=== PATIENT | male | born 1955 | race Asian ===

== ENCOUNTER 2017-07-21 09:46 | Outpatient (RCR) | payer BC ==
[~2017-07-21 09:46] MED LIST: CHOL500050 PO; CPR500T PO; MULT-418 PO; MULT-974 PO; OMG1KC PO; SMV10T PO
[2017-07-21 10:43] LABS: BASOPHILS % (AUTO) 1 % (0-10); EOSINOPHILS # (AUTO) 0.1 10^3/uL (0.0-0.3); EOSINOPHILS % (AUTO) 2 % (0-10); LYMPHOCYTES # (AUTO) 1.4 X 10^3 (1.0-4.0); LYMPHOCYTES % (AUTO) 28 % (12-44); MEAN CORPUSCULAR HEMOGLOBIN 29 PG (25-34); MEAN CORPUSCULAR HGB CONC 34 G/DL (32-36); MEAN CORPUSCULAR VOLUME 85 FL (80-99); MEAN PLATELET VOLUME 10.5 FL (7.4-10.4); MONOCYTES # (AUTO) 0.4 X 10^3 (0.0-1.0); MONOCYTES % (AUTO) 8 % (0-12); NEUTROPHILS % (AUTO) 61 % (42-75); PLATELET COUNT 160 10^3/uL (130-400); RED BLOOD COUNT 5.78 10^6/uL (4.35-5.85); RED CELL DISTRIBUTION WIDTH 13.4 % (10.0-14.5); RETICULOCYTE % 0.82 % (0.50-2.40)
[2017-07-21 11:19] LABS: ANION GAP 10 MMOL/L (5-14); BLOOD UREA NITROGEN 12 MG/DL (7-18); BUN/CREATININE RATIO 10; CARBON DIOXIDE 26 MMOL/L (21-32); CHLORIDE 104 MMOL/L (98-107); SODIUM 140 MMOL/L (135-145)
[2017-07-21 11:20] LABS: ALANINE AMINOTRANSFERASE 31 U/L (0-55); ALBUMIN 4.5 GM/DL (3.2-4.5); ASPARTATE AMINO TRANSFERASE 31 U/L (5-34); BILIRUBIN,TOTAL 0.7 MG/DL (0.1-1.0); CALCIUM 9.4 MG/DL (8.5-10.1); GFR ESTIMATED > 60; GLUCOSE 93 MG/DL (70-105); TOTAL PROTEIN 7.4 GM/DL (6.4-8.2)
[2017-07-26 07:22] LABS: JAK2 MUTATION Not Detected
== END 2017-08-21 | disposition home or self-care (01) ==
LOC: ONC 09:46
PROVIDERS: ATTEND Internal Medicine Hematology & Oncology
DX: R79.89 Other specified abnormal findings of blood chemistry (principal); E78.00 Pure hypercholesterolemia, unspecified; E03.9 Hypothyroidism, unspecified; Z79.899 Other long term (current) drug therapy
CPT/HCPCS: 36415; 80053; 81270; 82375; 82668; 82728; 83540; 85025; 85045; 99214

== ENCOUNTER 2017-08-26 14:50 | Outpatient (RCR) | payer BC ==
[2017-08-26 15:16] LABS: BASOPHILS % (AUTO) 0 % (0-10); EOSINOPHILS # (AUTO) 0.2 10^3/uL (0.0-0.3); EOSINOPHILS % (AUTO) 3 % (0-10); HEMATOCRIT 48 % (40-54); HEMOGLOBIN 16.5 G/DL (13.3-17.7); LYMPHOCYTES # (AUTO) 1.4 X 10^3 (1.0-4.0); LYMPHOCYTES % (AUTO) 26 % (12-44); MEAN CORPUSCULAR HEMOGLOBIN 29 PG (25-34); MEAN CORPUSCULAR HGB CONC 34 G/DL (32-36); MEAN CORPUSCULAR VOLUME 85 FL (80-99); MEAN PLATELET VOLUME 10.3 FL (7.4-10.4); MONOCYTES # (AUTO) 0.4 X 10^3 (0.0-1.0); MONOCYTES % (AUTO) 7 % (0-12); NEUTROPHILS # (AUTO) 3.4 X 10^3 (1.8-7.8); NEUTROPHILS % (AUTO) 64 % (42-75); PLATELET COUNT 148 10^3/uL (130-400); RED BLOOD COUNT 5.65 10^6/uL (4.35-5.85); RED CELL DISTRIBUTION WIDTH 13.3 % (10.0-14.5); WHITE BLOOD COUNT 5.3 10^3/uL (4.3-11.0)
== END 2017-11-24 | disposition home or self-care (01) ==
LOC: ONC 14:50
PROVIDERS: ATTEND Internal Medicine Hematology & Oncology
DX: D58.2 Other hemoglobinopathies (principal); E78.00 Pure hypercholesterolemia, unspecified; E03.9 Hypothyroidism, unspecified; Z79.899 Other long term (current) drug therapy
CPT/HCPCS: 36415; 82728; 83540; 85025; 99213

== ENCOUNTER 2018-09-29 05:52 | Outpatient (CLI) | payer BC ==
[~2018-09-29] VITALS: Ht 162.6 cm; Wt 64.4 kg
[2018-09-29] MEDS ORDERED: LEVO25TA5 PO (14:37)
[2018-09-29] MEDS ORDERED: OMG1KC PO (14:37)
[2018-09-29] MEDS ORDERED: SIMV40TA4 PO (14:37)
== END 2018-09-29 14:41 | disposition home or self-care (01) ==
LOC: PREOP 05:52
PROVIDERS: ATTEND Internal Medicine
DX: Z01.818 Encounter for other preprocedural examination (principal)

== ENCOUNTER 2018-10-07 07:48 | Day surgery (SDC) | payer BC ==
--- NOTE | 2018-09-28 17:26 | HISTORY AND PHYSICAL ---
DATE OF SERVICE: COLONOSCOPY CONSULT HISTORY OF PRESENT ILLNESS: The patient is a 63-year-old white male, referred back to Dr. Santos, for consideration for endoscopy due to hemoccult positive blood in the stool. The patient states that he has generally been feeling well. He has noted no bowel habit change. Occasionally, he has had some stools that have been darker in color, although not overtly melanotic. He denies abdominal pain, reflux symptoms or dysphagia. He does take a baby aspirin daily for primary prevention. He underwent colonoscopy 2-1/2 years ago at which time, no abnormalities were noted and there was no evidence for neoplasia, hemorrhoids or any potential bleeding sites at that time. That was done for screening purposes. He has had no past history of EGD evaluation. He does report that over the past 6 months, he has lost about 6 pounds. He has been normal weight, now in his life. Compared to a weight in 06/2016, at the time of his colonoscopy consultation, he weighed 149.4 pounds and today, he is down by 4 pounds to 145.4. FAMILY HISTORY: He is not aware of any family history of GI tract malignancy. Father at the age of 65, secondary to stroke. Mother also had history of stroke at the age of 67 and had hyperlipidemia. She at the age of 67. PAST SURGICAL HISTORY: Pertinent only for a vasectomy. 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 REVIEW OF SYSTEMS: As was stated in the HPI. PHYSICAL EXAMINATION: GENERAL: Reveals a well-appearing male, in no acute distress. VITAL SIGNS: Blood pressure is 136/84, heart rate 72 and regular. HEENT: Unremarkable. Sclerae are nonicteric. There is no evidence for pallor. Oral cavity reveals Mallampati class 2 pharyngeal configuration without evidence for erythema or exudate. CHEST: Clear to auscultation. CARDIOVASCULAR: Reveals a regular rate and rhythm without murmur, S3 or S4. ABDOMEN: Soft, supple without mass, organomegaly or tenderness. EXTREMITIES: Reveal no cyanosis, clubbing or edema. LABORATORY DATA: Blood tests from 09/20/2018, were reviewed. He had normal TSH, vitamin D level, chemistry panel, testosterone level and CBC. Hemoglobin was 16.8, MCV was 87. PSA was within normal limits at 2.78. ASSESSMENT AND PLAN: For further evaluation of occult positive blood in the stool, the patient is set up for diagnostic colonoscopy on 10/07/2018. If no abnormalities are noted considering the fact the patient is on aspirin for primary prevention of cardiovascular disease, we will proceed with EGD evaluation. Thank you for the referral of this pleasant gentleman. Job ID: [id number] DocumentID: [id number] Dictated Date: 09/28/2018 16:31:49 Petroleum Inspector Supervisor Date: 09/28/2018 17:26:15 Dictated By: ASHOK SANTOS MD
[~2018-10-07] VITALS: Ht 162.6 cm; Wt 64.4 kg
[~2018-10-07 07:48] MED LIST changes: +LEVO25TA5 PO; +SIMV40TA4 PO
[2018-10-07] MEDS ORDERED: D5 LR IV SOLUTION 1,000 ML IV ONE (08:01)
[2018-10-07] MEDS ORDERED: D5 LR IV SOLUTION 1,000 ML IV STA (08:17)
[2018-10-07 08:20] VITALS: BP 146/88
[2018-10-07] MEDS ORDERED: LIDOCAINE JELLY 2% 6 ML SYRINGE MM PRN (08:30)
[2018-10-07] MEDS ORDERED: fentaNYL INJECTION 100 MCG/2 ML AMP IVP ONE (08:30)
[2018-10-07] MEDS ORDERED: MIDAZOLAM 2 MG/2 ML (VERSED) VIAL IVP ONE (08:30)
[2018-10-07] MEDS ORDERED: HURRICAINE EXT TUBE (BENZOCAINE) XX PRN (08:30)
[2018-10-07] MEDS ORDERED: LIDOCAINE JELLY 2% 6 ML SYRINGE ONE (08:51)
[2018-10-07] MEDS ORDERED: MIDAZOLAM 2 MG/2 ML (VERSED) VIAL ONE ×4 (08:51)
[2018-10-07] MEDS ORDERED: HURRICAINE EXT TUBE (BENZOCAINE) ONE (08:51)
[2018-10-07] MEDS ORDERED: fentaNYL INJECTION 100 MCG/2 ML AMP ONE ×2 (08:51)
--- NOTE | 2018-10-07 09:00 | Pre-Op Note & Conscious Sedat ---
Pre-Operative Progress Note H&P Reviewed The H&P was reviewed, patient examined and no changes noted. Date H&P Reviewed: Oct 07, 2018 Time H&P Reviewed: 08:30 Conscious Sedation Pre-Proced ASA Score 1 For ASA 3 and 4: Consider anesthesia and medical clearance. Also, for patients with a history of failed moderate sedation consider anesthesia. Airway Lungs Heart ASA score ASA 1: a normal healthy patient ASA 2: a patient with a mild systemic disease (mid diabetes, controlled hypertension, obesity ASA 3: a patient with a severe systemic disease that limits activity (angina , COPD, prior Myocardial infarction) ASA 4: a patient with an incapacitating disease that is a constant threat to life (CHF, renal failure) ASA 5: a moribund patient not expected to survive 24 hrs. (ruptured aneurysm) ASA 6: a declared brain patient whose organs are being harvested. For emergent operations, add the letter E after the classification Mallampati Classification Grade 2 Sedation Plan Analgesia, Amnesia, Plan communicated to team members, Discussed options with patient/fam, Discussed risks with patient/fam The patient is an appropriate candidate to undergo the planned procedure, sedation, and anesthesia. The patient immediately re-assessed prior to indication. ASHOK SANTOS MD Oct 07, 2018 09:00
[2018-10-07] MEDS ORDERED: SIMETHICONE 40 MG/0.6 ML (MYLICON DROPS) 30 ML BTL ONE (09:14)
[2018-10-07] MEDS ORDERED: SIMETHICONE 40 MG/0.6 ML (MYLICON DROPS) 30 ML BTL PO PRN (09:30)
[2018-10-07 09:50] VITALS: BP 132/75
[2018-10-07 10:25] VITALS: BP 134/88
[2018-10-07 10:31] VITALS: BP 134/88
--- NOTE | 2018-10-08 02:18 | OPERATIVE REPORT ---
DATE OF SERVICE: PANENDOSCOPY SUMMARY INDICATION FOR THE PROCEDURE: Diagnostic panendoscopy performed for occult positive blood in the stool. The patient had been taking aspirin and intermittent ibuprofen. The patient was placed in the left lateral decubitus position. Prior to doing colonoscopy, digital rectal evaluation was performed. Prostate was normal in size, anodular and nontender to digital inspection. No abnormalities, no additional inspection of anal canal or distal rectal vault. Anal sphincter tone was normal and the perianal reflexes intact. The colonoscope was then inserted into the rectum under direct visualization and advanced to cecum. The cecum was identified by identification of the ileocecal valve and cecal strap. Photographic documentation was obtained. Careful inspection was made as well as colonoscope was withdrawn. FINDINGS: There is no evidence for internal or external hemorrhoids. Present in the rectosigmoid junction was a 3 mm sessile hyperplastic appearing polyp was biopsied, ablated and submitted for histopathology. No blood was noted throughout today's colonoscopy. The sigmoid colon, descending colon, splenic flexure, transverse colon, hepatic flexure, ascending colon and cecum were unremarkable. No evidence for neoplasia was identified and no evidence for potential bleeding sites were identified on today's colonoscopy. For this reason, we then proceeded with EGD evaluation. An endoscope was inserted in the oral cavity under direct visualization and the esophagus was intubated. Endoscope was passed down the esophagus through the stomach into the second portion of the duodenum. A careful inspection was made as the endoscope was withdrawn. The patient tolerated the procedure well. FINDINGS: The posterior pharynx, arytenoid aperture, true and false vocal folds were unremarkable to visual inspection. Proximal, mid and distal esophagus were unremarkable, save for small hiatal hernia. The Z line was distinct without evidence for Meredith's change, erythema or ulceration. The cardia and the fundus of stomach were unremarkable. There are some linear erythematous streaks in the antrum of the stomach. There were several prepyloric erosions and one small prepyloric benign appearing ulcer. It was biopsied and submitted for histopathology. An antral biopsy was submitted for Helicobacter evaluation. The pyloric channel, the duodenal bulb and second portion of the duodenum were unremarkable. ASSESSMENT: Antral gastritis was present with one shallow benign appearing prepyloric ulceration, the most likely cause of this patient's occult positive stool and most likely related to combination of aspirin and nonsteroidal use. A small hiatal hernia was present with no other abnormalities being appreciated on today's study. The patient was advised to abstain from aspirin and ibuprofen. If Helicobacter is not present, as the patient was asymptomatic other than an occult positive blood, expect healing should occur with abstinence of ulcerogenic medications. We will await histopathology. If Helicobacter is present we will take the liberty of initiating proton pump inhibitor therapy and Helicobacter eradication. We would recommend no further therapy if the patient is Helicobacter negative. I thank you for the referral of this pleasant gentleman. Sincerely, Job ID: [id number] DocumentID: [id number] Dictated Date: 10/07/2018 16:46:52 Icebox Man Date: 10/08/2018 02:18:33 Dictated By: ASHOK SANTOS MD MTDD
== END 2018-10-07 10:53 | disposition home or self-care (01) ==
LOC: ENDO 07:48
PROVIDERS: ATTEND Internal Medicine
DX: K62.1 Rectal polyp (principal); K25.9 Gastric ulcer, unspecified as acute or chronic, without hemorrhage or perforation; K29.50 Unspecified chronic gastritis without bleeding; K44.9 Diaphragmatic hernia without obstruction or gangrene; Z79.82 Long term (current) use of aspirin; Z79.1 Long term (current) use of non-steroidal anti-inflammatories (NSAID)